=== PATIENT | male | born 1985 | race Caucasian/White ===

== ENCOUNTER 2019-07-23 12:01 | Emergency (ER) | payer SELFPAY ==
[~2019-07-23] VITALS: Ht 180.3 cm; Wt 100.0 kg
[2019-07-23 12:45] LABS: ALBUMIN 4.2 g/dL (3.4-5.0); ANION GAP 32.7 mmol/L (8-16); BILIRUBIN - TOTAL 0.67 mg/dL (0.2-1.3); CALCIUM 8.7 mg/dL (8.5-10.1); CREATININE - SERUM 1.7 mg/dL (0.6-1.3); PROTEIN - SERUM 7.8 g/dL (6.4-8.2)
[2019-07-23 12:46] LABS: BASOPHILS 0.2 % (0-2); EOSINOPHILS 0.2 % (0-7); HEMATOCRIT 43.9 % (42.0-54.0); IMMATURE GRANULOCYTES 0.2 % (0-5); MCH 30.8 pg (26.0-34.0); MCHC 31.9 g/dL (31.0-37.0); MCV 96.7 fL (80.0-100.0); MONOCYTES 4.9 % (2-11); NEUTROPHILS 78.5 % (40-80); PLATELET COUNT 402 10x3/uL (130-400); RBC 4.54 10x6/uL (4.20-6.10); RDW 12.2 % (11.5-14.5); WBC 12.3 10x3/uL (4.8-10.8)
[2019-07-23 12:47] LABS: CARBON DIOXIDE 9.3 mmol/L (21.0-32.0)
[2019-07-23 12:50] LABS: APTT 24.6 SECONDS (22.8-39.4); INR 1.18 (0.85-1.17); PROTIME 14.9 SECONDS (11.6-15.0)
[2019-07-23] MEDS ORDERED: AUGMENTIN 875-11 TAB PO (12:53)
[2019-07-23 13:16] LABS: BILIRUBIN NEGATIVE (NEGATIVE); GLUCOSE NEGATIVE (NEGATIVE); KETONE NEGATIVE (NEGATIVE); NITRITE NEGATIVE (NEGATIVE); UROBILINOGEN 8 mg/dL (NORMAL)
[2019-07-23 13:17] LABS: AMORPHOUS SEDIMENT <1+ /lpf (NONE SEEN); BACTERIA FEW /hpf (NEGATIVE); EPITHELIAL CELLS OCC /hpf (0-5); GRANULAR CAST RARE /lpf (NONE SEEN); HYALINE CAST 0-5 /lpf (NONE SEEN); RED CELLS - URINE 0-5 /hpf (0-5); WHITE CELLS - URINE RARE /hpf (NEGATIVE)
[2019-07-23 14:23] VITALS: BP 128/78
[2019-07-23 17:11] VITALS: Ht 180.3 cm; Wt 100.0 kg
== END 2019-07-23 14:24 ==
LOC: D.ER 12:01
PROVIDERS: Family Medicine
DX: F15.129 Other stimulant abuse with intoxication, unspecified (principal); R46.89 Other symptoms and signs involving appearance and behavior; R73.9 Hyperglycemia, unspecified; E87.6 Hypokalemia; S31.159A Open bite of abdominal wall, unspecified quadrant without penetration into peritoneal cavity, initial encounter; W54.0XXA Bitten by dog, initial encounter; Y93.9 Activity, unspecified; Y92.9 Unspecified place or not applicable; N28.9 Disorder of kidney and ureter, unspecified